=== PATIENT | female | born 1970 | race Caucasian/White ===

== ENCOUNTER 2016-08-04 | Emergency (ER) | payer OTHER | END 2016-08-04 23:37 | disposition home or self-care (01) | DX: Z53.21 Procedure and treatment not carried out due to patient leaving prior to being seen by health care provider (principal) ==

== ENCOUNTER → 2020-06-18 | Outpatient (CLI) | payer OTHER | LOC: KOH-I 08:52 | DX: E04.2 Nontoxic multinodular goiter (principal) | CPT/HCPCS: 76536 ==

== ENCOUNTER → 2021-08-05 | Outpatient (CLI) | payer SELFPAY | LOC: KOH-I 08:00 | DX: E04.2 Nontoxic multinodular goiter (principal); Z79.899 Other long term (current) drug therapy; E04.1 Nontoxic single thyroid nodule | CPT/HCPCS: 76536 ==

== ENCOUNTER 2021-11-09 09:09 | Emergency (ER) | payer SELFPAY ==
[2021-11-09 11:15] LABS: HEMOGLOBIN 14.1 gm/dl (12.3-15.3); RED BLOOD COUNT 5.24 M/UL (4.00-5.10); WHITE BLOOD COUNT 7.8 K/UL (4.5-11.0)
[2021-11-09 11:36] LABS: BUN/CREATININE RATIO 17 (0-10)
[2021-11-09] MEDS ORDERED: MECLIZINE HCL25 MG PO (12:28)
== END 2021-11-09 12:46 | disposition home or self-care (01) ==
LOC: ER1 09:09
PROVIDERS: Physician Assistant
DX: R00.2 Palpitations (principal); R42 Dizziness and giddiness; Z87.442 Personal history of urinary calculi; Z88.2 Allergy status to sulfonamides; Z20.822 Contact with and (suspected) exposure to COVID-19
CPT/HCPCS: 0240U; 70450; 71045; 80053; 81001; 82550; 82553; 83735; 84439; 84443; 84484; 85025; 93005; 96374; 96375; 99285; J1885; J2405